=== PATIENT | female | born 1960 | race Caucasian/White ===

== ENCOUNTER 2017-02-01 02:29 | Emergency (ER) | payer MEDICARE, OTHER ==
[~2017-02-01] VITALS: Ht 167.6 cm; Wt 85.0 kg
[~2017-02-01 02:29] MED LIST: CELE100C PO; CLON1 PO; HYDR-3533 PO; HYDRO25; IBUP800T23 PO; SUMA25TA2 PO; TAB-TAB PO; XANA2TAB2 PO
[2017-02-01 02:34] VITALS: TEMP 97.8
[2017-02-01 02:39] VITALS: BP 106/57; PULSE 96; RESP 18; TEMP 97.8; O2SAT 98
[2017-02-01] MEDS ORDERED: VIST50CA PO (02:59)
--- NOTE | 2017-02-01 02:59 | PD ---
HPI Chief Complaint: Anxiety Time Seen by Provider: 02:55 Travel History International Travel<30 days: No Contact w/Intl Traveler<30days: No Traveled to known affect area: No History of Present Illness HPI 56-year-old female with history of anxiety presents to [facility] department requesting a refill of her alprazolam. Patient states that she has in taking more than prescribed because her anxiety is not controlled. She has a refill but she cannot fill it until Saturday. Patient does admit to abusing the medication and taking it too frequently. States her last dose was more than 48 hours ago. States that she is feeling increasingly anxious and had a panic attack. At this time she denies any other symptoms. PFSH Past Medical History Arthritis: Yes (rheumatiod) Autoimmune Disease: Yes (RHEUMATOID ARTHRITIS) Anxiety: Yes Depression: Yes Cardiovascular Problems: No Diminished Hearing: No Endocrine: No Genitourinary: No Headaches: Yes Musculoskeletal: Yes Neurologic: No Psychiatric: Yes Reproductive: No Respiratory: No Migraines: Yes ?: Not LMP: POST MENOPAUSAL Menopausal: Yes : 10 Para: 5 Miscarriage: 3 : 2 Social History Alcohol Use: No Tobacco Use: Yes (1PPD) Substance Use: No (UNK) Allergies-Medications (Allergen,Severity, Reaction): Coded Allergies: No Known Allergies (Unverified , 02/01/17) Per pt. Reported Meds & Prescriptions Reported Meds & Active Scripts Active Vistaril (Hydroxyzine Pamoate) 50 Mg Cap 50 Mg PO QID PRN Review of Systems Except as stated in HPI: all other systems reviewed are Neg Physical Exam Narrative GENERAL: Well-nourished patient in no acute distress. SKIN: Focused skin assessment warm/dry. HEAD: Atraumatic. Normocephalic. EYES: Pupils equal and round. No scleral icterus. No injection or drainage. ENT: No nasal bleeding or discharge. Mucous membranes pink and moist. NECK: Trachea midline. No JVD. CARDIOVASCULAR: Elevated rate and rhythm. No murmur appreciated. RESPIRATORY: No accessory muscle use. Clear to auscultation. Breath sounds equal bilaterally. GASTROINTESTINAL: Abdomen soft, non-tender, nondistended. Hepatic and splenic margins not palpable. MUSCULOSKELETAL: No obvious deformities. No clubbing. No cyanosis. No edema. NEUROLOGICAL: Awake and alert. No obvious cranial nerve deficits. Motor grossly within normal limits. Normal speech. Data Data Last Documented VS Vital Signs Date Time Temp Pulse Resp B/P (MAP) Pulse Ox O2 Delivery O2 Flow Rate FiO2 02/01/17 03:10 02/01/17 02:39 97.8 96 18 98 Room Air Orders Orders Hydroxyzine Pamoate (Vistaril) (02/01/17 03:00) MDM Medical Decision Making Medical Screen Exam Complete: Yes Emergency Medical Condition: Yes Medical Record Reviewed: Yes Differential Diagnosis Benzodiazepine abuse versus dependency versus anxiety versus panic attack Narrative Course 56-year-old female presents to emergency department requesting a refill of alprazolam for anxiety. Patient also admits to misusing this dictation and has a refill waiting for her but she cannot pick it up until Saturday. Patient's last dose was over 48 hours ago. She is agitated. She is demanding that I give her her alprazolam. I explained to her that I will not be refilling this medication but offered her Vistaril as an alternative. Patient tells me that she has that and that does not work. I discussed the patient with my attending physician Dr. Vela who agreed we would not be giving the patient a refill of her alprazolam. She is given a dose of Vistaril here. She'll be discharged at this time. Diagnosis Primary Impression: Anxiety Additional Impression: Benzodiazepine abuse, continuous Referrals: [facility] (Out patient) [facility] Primary Care Physician Patient Instructions: Anxiety (ED), Benzodiazepine Abuse (ED), General Instructions Additional Instructions: It is critical that you take your medication as prescribed, otherwise it is considered abuse Follow-up with your primary care provider Return immediately with any acute worsening of symptoms Med/Other Pt SpecificInfo: Prescription(s) given Scripts Hydroxyzine Pamoate (Vistaril) 50 Mg Cap 50 MG PO QID Y for ANXIETY, #15 CAP 0 Refills Prov: Janice Campa 02/01/17 Disposition: 01 DISCHARGE HOME Condition: Stable Janice Campa Feb 01, 2017 02:59
== END 2017-02-01 03:25 | disposition home or self-care (01) ==
LOC: NEPD 02:29
DX: F41.0 Panic disorder [episodic paroxysmal anxiety] (principal); F13.10 Sedative, hypnotic or anxiolytic abuse, uncomplicated
CPT/HCPCS: 99283